=== PATIENT | female | born 1940 | race Caucasian/White ===

== ENCOUNTER 2017-01-04 08:15 | Emergency (ER) | payer MEDICARE, BC ==
[~2017-01-04] VITALS: Ht 165.1 cm; Wt 74.2 kg
[2017-01-04 08:15] VITALS: BP 190/92; PULSE 86; RESP 16; TEMP 97.8; O2SAT 95
[~2017-01-04 08:15] MED LIST: ASPI81TA82 PO; CALC500T21 PO; LATA0.00 EACH EYE; LOSA100T3 PO; OMEGCAP19 PO; TAB-TAB PO; TAMO20TA4 PO; VITA200017 PO
[2017-01-04] MEDS ORDERED: SODIUM CHLORIDE 0.9% FLUSH 10 ML FLUSH IVF PRN (08:30)
--- NOTE | 2017-01-04 08:36 | PD ---
HPI Chief Complaint: Respiratory Symptoms Time Seen by Provider: 08:27 Travel History International Travel<30 days: No Contact w/Intl Traveler<30days: No Traveled to known affect area: No History of Present Illness HPI Patient is a 76-year-old female with history of HTN, HLD here with complaint of shortness of breath and chest pain. Patient has had approximately 1 month of cough, cold, chest congestion. Patient states "I just can't kick it". She has not had any fevers, chills, chest pain, peripheral edema. She denies any history of cardiac disease or heart failure. Yesterday evening patient had a right sided subscapular pain that was very sharp and stabbing. Lasted for approximately several seconds in duration. Today she had a similar pain that wrapped around in the right inframammary region. Again this was very brief, several seconds in duration. Patient states that she gets this pain when she takes a deep breath, coughs, and less so with movement. She denies any history of recent travel, lower extremity edema, VT, PE or history of coagulopathy. PFSH Past Medical History Cancer: Yes (RIGHT BREAST LUMPECTOMY, BREAST CA) Cardiovascular Problems: Yes (HTN) High Cholesterol: Yes Diabetes: Yes (Borderline ) Diminished Hearing: No Endocrine: No Genitourinary: No Hepatitis: No Hiatal Hernia: No Hypertension: Yes Immune Disorder: No Kidney Stones: Yes Musculoskeletal: No Neurologic: No Psychiatric: No Reproductive: No Respiratory: No Immunizations Current: No Thyroid Disease: No ?: Not Menopausal: Yes Past Surgical History AICD: No Gynecologic Surgery: Yes (HYSTERECTOMY) Hysterectomy: Yes Joint Replacement: No Pacemaker: No Thoracic Surgery: Yes (RIGHT BREAST LUMPECTOMY) Social History Alcohol Use: No Tobacco Use: No Substance Use: No Allergies-Medications (Allergen,Severity, Reaction): Coded Allergies: Sulfa (Verified Adverse Reaction, Severe, Upset stomach , 01/04/17) Reported Meds & Prescriptions Reported Meds & Active Scripts Active Reported [Vibrance] 1 PO DAILY Atorvastatin (Atorvastatin Calcium) 10 Mg Tab 10 Mg PO HS Aspir-81 (Aspirin) 81 Mg Tabdr 1 Tab DAILY Preservision Areds (Multiple Vitamins W/ Minerals) 1 Tab 1 Tab PO DAILY Fish Oil 1,000 mg Softgel (Roma-3 Fatty Acids/Fish Oil) 1 Each Capsule 2 Cap PO PRN Vitamin D-3 (Cholecalciferol) 1,000 Unit Cap Vitamin E (Vitamin E Acetate) 400 Unit Capsule Multi-Vitamin Daily (Multiple Vitamin) 1 Tab Tab 1 Tab PO DAILY Irbesartan-Hydrochlorothiazide 300-12.5 Mg Tab 1 Tab PO DAILY Latanoprost Opth Drops (Latanoprost) 0.005% Drops 1 Drop EACH EYE HS Refrigerate until opened. Review of Systems Except as stated in HPI: all other systems reviewed are Neg Physical Exam Narrative GENERAL: Pleasant elderly female in no acute distress SKIN: Focused skin assessment warm/dry. HEAD: Normocephalic. EYES: No scleral icterus. No injection or drainage. ENT: Mucous membranes pink and moist. NECK: Supple CARDIOVASCULAR: Regular rate and rhythm. No murmur appreciated. No reproducible tenderness to palpation the chest wall. RESPIRATORY: No accessory muscle use. Clear to auscultation. Breath sounds equal bilaterally. GASTROINTESTINAL: Abdomen soft, non-tender, nondistended. MUSCULOSKELETAL: No obvious deformities. No edema. NEUROLOGICAL: Awake and alert. Normal speech. PSYCHIATRIC: Appropriate mood and affect; insight and judgment normal. Data Data Last Documented VS Vital Signs Date Time Temp Pulse Resp B/P Pulse Ox O2 Delivery O2 Flow Rate FiO2 01/04/17 08:43 16 93 Room Air 01/04/17 08:42 76 191/80 01/04/17 08:15 97.8 Orders Complete Blood Count With Diff (01/04/17 08:28) Basic Metabolic Panel (Bmp) (01/04/17 08:28) D-Dimer (01/04/17 08:28) Troponin I (01/04/17 08:28) Iv Access Insert/Monitor (01/04/17 08:28) Electrocardiogram (01/04/17 08:28) Ecg Monitoring (01/04/17 08:28) Oximetry (01/04/17 08:28) Chest, Single Ap (01/04/17 08:28) Sodium Chloride 0.9% Flush (Ns Flush) (01/04/17 08:30) Labs Laboratory Tests Test 01/04/17 08:45 White Blood Count 7.6 TH/MM3 Red Blood Count 5.28 MIL/MM3 Hemoglobin 14.9 GM/DL Hematocrit 44.7 % Mean Corpuscular Volume 84.7 FL Mean Corpuscular Hemoglobin 28.3 PG Mean Corpuscular Hemoglobin 33.4 % Concent Red Cell Distribution Width 13.4 % Platelet Count 217 TH/MM3 Mean Platelet Volume 8.5 FL Neutrophils (%) (Auto) 70.9 % Lymphocytes (%) (Auto) 14.2 % Monocytes (%) (Auto) 11.1 % Eosinophils (%) (Auto) 0.5 % Basophils (%) (Auto) 3.3 % Neutrophils # (Auto) 5.4 TH/MM3 Lymphocytes # (Auto) 1.1 TH/MM3 Monocytes # (Auto) 0.8 TH/MM3 Eosinophils # (Auto) 0.0 TH/MM3 Basophils # (Auto) 0.3 TH/MM3 CBC Comment DIFF FINAL Differential Comment D-Dimer Quantitative (PE/DVT) 0.41 MG/L FEU Sodium Level 143 MEQ/L Potassium Level 3.8 MEQ/L Chloride Level 106 MEQ/L Carbon Dioxide Level 27.8 MEQ/L Anion Gap 9 MEQ/L Blood Urea Nitrogen 18 MG/DL Creatinine 0.95 MG/DL Estimat Glomerular Filtration 57 ML/MIN Rate Random Glucose 114 MG/DL Calcium Level 10.0 MG/DL Troponin I 0.05 NG/ML MDM Medical Decision Making Medical Screen Exam Complete: Yes Emergency Medical Condition: Yes Medical Record Reviewed: Yes Differential Diagnosis 76-year-old female with history of HTN, HLD here with 1 month of cough, cold, chest congestion and now pleuritic type pain in the right subscapular and right inframammary region 1 day. Differential includes pleurisy, viral URI, pneumonia, pulmonary embolism and less likely ACS, dissection Narrative Course Patient placed on monitor, IV established and blood obtained. A twelve-lead EKG showed sinus rhythm without notable ST or T-wave abnormalities and normal intervals. Patient is again pain-free at this time. Portable chest x-ray showed mild bibasilar atelectasis. CBC, BMP, troponin, d-dimer unremarkable. Patient was reassured my strong suspicion is that this is pleurisy given her prolonged viral URI symptoms. Patient will be treated with steroids for home. Diagnosis Primary Impression: Pleurisy Additional Impression: Viral URI Referrals: Primary Care Physician as needed Patient Instructions: General Instructions, Pleurisy (ED) Additional Instructions: Finished steroids as prescribed. Follow-up with primary care provider symptoms persist and return to the ER for the warning signs discussed. Med/Other Pt SpecificInfo: Prescription(s) given Scripts Prednisone 50 Mg Tab50 Mg PO DAILY 5 Days Ref 0 Prov:Ena Xavier MD 01/04/17 Disposition: 01 DISCHARGE HOME Condition: Stable Ena Xavier MD Jan 04, 2017 08:36
[2017-01-04 08:42] VITALS: BP 191/80; PULSE 76; RESP 16; O2SAT 93
[2017-01-04 08:43] VITALS: RESP 16; O2SAT 93
--- NOTE | 2017-01-04 08:44 | RADRPT ---
EXAM DATE/TIME: 01/04/2017 08:37 [facility] COMPARISON: No previous studies available for comparison. INDICATIONS : Short of breath, chest pains MEDICAL HISTORY : Carcinoma, breast. SURGICAL HISTORY : None. ENCOUNTER: Initial ACUITY: 1 day PAIN SCORE: 5/10 LOCATION: Bilateral chest FINDINGS: A single view of the chest demonstrates the lungs to be symmetrically aerated without evidence of mas s, infiltrate or effusion. There is mild atelectasis in both lung bases. The cardiomediastinal conto urs are unremarkable. Osseous structures are intact. CONCLUSION: Mild bibasilar atelectasis. Venu Negron MD on January 04, 2017 at 8:41 Board Certified Radiologist. This report was verified electronically.
[2017-01-04 09:02] LABS: AUTOMATED NEUTROPHIL # 5.4 TH/MM3 (1.8-7.7); BASOPHIL # 0.3 TH/MM3 (0-0.2); BASOPHIL % 3.3 % (0.0-2.0); EOSINOPHIL % 0.5 % (0.0-4.0); HEMATOCRIT 44.7 % (35.0-46.0); HEMO FLAGS DIFF FINAL; LYMPH % 14.2 % (9.0-44.0); LYMPHOCYTE # 1.1 TH/MM3 (1.0-4.8); MEAN CELL VOLUME 84.7 FL (80.0-100.0); MEAN CORPUSCULAR HEMOGLOBIN 28.3 PG (27.0-34.0); MEAN CORPUSCULAR HGB CONC 33.4 % (32.0-36.0); MONO % 11.1 % (0.0-8.0); NEUT % 70.9 % (16.0-70.0); PLATELET COUNT 217 TH/MM3 (150-450); RED BLOOD COUNT 5.28 MIL/MM3 (4.00-5.30); RED CELL DISTRIBUTION WIDTH 13.4 % (11.6-17.2); WHITE BLOOD COUNT 7.6 TH/MM3 (4.0-11.0)
[2017-01-04] MEDS ORDERED: ASPI81TA81 (09:02)
[2017-01-04] MEDS ORDERED: OCUVTAB4 PO (09:02)
[2017-01-04] MEDS ORDERED: CHOL1CAP6 (09:02)
[2017-01-04] MEDS ORDERED: LATA0.002 EACH EYE (09:02)
[2017-01-04] MEDS ORDERED: [UNRECOGNIZED DRUG - CODE] PO (09:02)
[2017-01-04] MEDS ORDERED: IRBE300T13 PO (09:02)
[2017-01-04] MEDS ORDERED: VITA-136 (09:02)
[2017-01-04] MEDS ORDERED: [UNRECOGNIZED DRUG - OTHER] PO (09:02)
[2017-01-04] MEDS ORDERED: MULT-65 PO (09:02)
[2017-01-04] MEDS ORDERED: ATOR10TA15 PO (09:02)
[2017-01-04 09:11] LABS: POTASSIUM 3.8 MEQ/L (3.5-5.1)
[2017-01-04 09:13] LABS: BICARBONATE 27.8 MEQ/L (21.0-32.0)
[2017-01-04] MEDS ORDERED: PRED50 PO (09:27)
[2017-01-04 09:44] VITALS: BP 165/98
--- NOTE | 2017-01-05 11:47 | EKG ---
Date Performed: 01/04/2017 Time Performed: 08:57:43 PTAGE: 76 years EKG: Sinus rhythm NORMAL ECG NO PREVIOUS TRACING DOCTOR: Joss Damon Interpretating Date/Time 01/05/2017 11:45:39
== END 2017-01-04 09:47 | disposition home or self-care (01) ==
LOC: PHED 08:15
DX: R09.1 Pleurisy (principal); J06.9 Acute upper respiratory infection, unspecified; I10 Essential (primary) hypertension; E78.00 Pure hypercholesterolemia, unspecified; Z85.3 Personal history of malignant neoplasm of breast
CPT/HCPCS: 71010; 80048; 84484; 85025; 85379; 93005; 99285